=== PATIENT | female | born 1985 | race Two or more races ===

== ENCOUNTER → 2022-09-30 | Day surgery (SDC) | payer MEDICAID ==
[2022-09-27 10:32] LABS: Basophils # (auto) 0 10 ^3/uL (0-0.2); Basophils % (auto) 0.6 % (0.0-2.0); Eosinophils # (auto) 0.2 10 ^3/uL (0-0.8); Hematocrit 43.2 % (36.0-46.0); Hemoglobin 14.5 g/dL (12.2-16.2); Lymphocytes # (auto) 1.7 10 ^3/uL (0.4-5.4); Lymphocytes % (auto) 26.5 % (10.0-50.0); Mean Corpuscular Hemoglobin 28.9 pg (28.0-32.0); Mean Corpuscular Hgb Conc. 33.6 g/dL (32.0-36.0); Mean Corpuscular Volume 86.2 fL (80.0-100.0); Monocytes # (auto) 0.5 10 ^3/uL (0-1.3); Monocytes % (auto) 8.1 % (0.0-12.0); Neutrophils % (auto) 61.8 % (37.0-80.0); Nucleated Red Blood Cells % 0.1 %; Red Blood Cells 5.01 10^6/uL (4.0-5.20); Red Cell Distribution Width 13.2 % (11.8-14.3); White Blood Cell 6.4 10^3/uL (4.4-10.8)
[2022-09-27 10:51] LABS: INR 1.03 (0.9-1.15); Partial Thromboplastin Time 29.9 sec (24.6-33.4)
[2022-09-27 10:52] LABS: Albumin 4.1 g/dL (3.4-5.0); Calcium 9.3 mg/dL (8.5-10.1); Potassium 3.9 mmol/L (3.5-5.1)
[2022-09-27 10:57] LABS: BUN/Creatinine Ratio 21.9; Bilirubin, Total 1.3 mg/dL (0.2-1.0); Total Protein 9.1 g/dL (6.4-8.2)
[~2022-09-30] VITALS: Ht 160 cm; Wt 61.7 kg
[~2022-09-30] MED LIST: LIDOCAINE VISCOUS 2% 15ML UD ONE; METF-490 PO; PANT40TA2 PO; diphenhdrAMINE HCL 50 MG/1 ML VL ONE
[2022-09-30] MEDS: fentaNYL CITRATE 100 MCG/2 ML VL ONE ×2 (10:08→10:11)
[2022-09-30] MEDS: MIDAZOLAM HCL 2MG/2ML 2ml VIAL (1mg/ml) ONE ×2 (10:08→10:11)
[2022-09-30 10:45] VITALS: BP 121/88
== END | disposition home or self-care (01) ==
LOC: GI 09:08
PROVIDERS: ATTEND Internal Medicine Gastroenterology
DX: K74.60 Unspecified cirrhosis of liver (principal); R10.9 Unspecified abdominal pain; K59.00 Constipation, unspecified; K29.60 Other gastritis without bleeding; I85.10 Secondary esophageal varices without bleeding; K76.6 Portal hypertension; K31.89 Other diseases of stomach and duodenum; K21.9 Gastro-esophageal reflux disease without esophagitis; E11.9 Type 2 diabetes mellitus without complications; Z79.84 Long term (current) use of oral hypoglycemic drugs; Z98.890 Other specified postprocedural states; Z20.822 Contact with and (suspected) exposure to COVID-19
CPT/HCPCS: 36415; 43244; 80053; 81025; 82962; 85025; 85610; 85730; J1200; J2250; J3010; J7030; U0003; 43239

== ENCOUNTER 2023-01-27 09:43 | Day surgery (SDC) | payer MEDICAID ==
[2023-01-25 11:12] LABS: Basophils # (auto) 0 10 ^3/uL (0-0.2); Basophils % (auto) 0.8 % (0.0-2.0); Eosinophils # (auto) 0.2 10 ^3/uL (0-0.8); Hematocrit 40.5 % (36.0-46.0); Hemoglobin 13.7 g/dL (12.2-16.2); Lymphocytes # (auto) 1.2 10 ^3/uL (0.4-5.4); Lymphocytes % (auto) 24.1 % (10.0-50.0); Mean Corpuscular Hemoglobin 29.1 pg (28.0-32.0); Mean Corpuscular Hgb Conc. 33.9 g/dL (32.0-36.0); Mean Corpuscular Volume 85.7 fL (80.0-100.0); Monocytes # (auto) 0.4 10 ^3/uL (0-1.3); Monocytes % (auto) 8.8 % (0.0-12.0); Neutrophils # (auto) 2.9 10 ^3/uL (1.6-8.6); Neutrophils % (auto) 61.3 % (37.0-80.0); Nucleated Red Blood Cells % 0.3 %; Red Blood Cells 4.73 10^6/uL (4.0-5.20); Red Cell Distribution Width 13.4 % (11.8-14.3); White Blood Cell 4.8 10^3/uL (4.4-10.8)
[2023-01-25 11:26] LABS: INR 1.08 (0.9-1.15); Partial Thromboplastin Time 29.1 sec (24.6-33.4)
[2023-01-25 12:09] LABS: Albumin 3.8 g/dL (3.4-5.0); Calcium 8.9 mg/dL (8.5-10.1); Potassium 4.4 mmol/L (3.5-5.1)
[2023-01-25 12:13] LABS: Total Protein 8.5 g/dL (6.4-8.2)
[~2023-01-27] VITALS: Ht 160 cm; Wt 59.0 kg
[~2023-01-27 09:43] MED LIST changes: +DEXL30CA4 PO; -LIDOCAINE VISCOUS 2% 15ML UD ONE; -METF-490 PO; +PLEC3TAB2 PO; -diphenhdrAMINE HCL 50 MG/1 ML VL ONE
[2023-01-27] MEDS ORDERED: diphenhdrAMINE HCL 50 MG/1 ML VL ONE (11:28)
[2023-01-27] MEDS: MIDAZOLAM HCL 2MG/2ML 2ml VIAL (1mg/ml) ONE ×2 (11:29→11:32)
[2023-01-27] MEDS: fentaNYL CITRATE 100 MCG/2 ML VL ONE ×2 (11:29→11:32)
[2023-01-27 12:15] VITALS: BP 118/81
== END 2023-01-27 12:25 | disposition home or self-care (01) ==
LOC: GI 09:43
PROVIDERS: ATTEND Internal Medicine Gastroenterology
DX: K74.60 Unspecified cirrhosis of liver (principal); I85.10 Secondary esophageal varices without bleeding; K76.6 Portal hypertension; K31.89 Other diseases of stomach and duodenum
CPT/HCPCS: 36415; 43235; 80053; 84702; 85025; 85610; 85730; J1200; J2250; J3010; J7030

== ENCOUNTER → 2024-02-16 | Day surgery (SDC) | payer MEDICAID ==
[~2024-02-16] VITALS: Ht 160 cm; Wt 63.0 kg
[~2024-02-16] MED LIST changes: -DEXL30CA4 PO; -PANT40TA2 PO; -PLEC3TAB2 PO; +SEMA2INJ3 SC
== END | disposition home or self-care (01) ==
LOC: GI 08:37
PROVIDERS: ATTEND Internal Medicine Gastroenterology
DX: K74.60 Unspecified cirrhosis of liver (principal); Z53.8 Procedure and treatment not carried out for other reasons; E11.9 Type 2 diabetes mellitus without complications; Z79.899 Other long term (current) drug therapy; Z98.890 Other specified postprocedural states
CPT/HCPCS: 36415; 82962; 84702

== ENCOUNTER 2024-06-21 07:39 | Day surgery (SDC) | payer MEDICAID ==
[2024-06-20 09:23] LABS: Urine Bacteria None Seen /hpf (None Seen)
[2024-06-20 09:34] LABS: Basophils # (auto) 0 10 ^3/uL (0-0.2); Basophils % (auto) 0.9 % (0.0-2.0); Eosinophils # (auto) 0.1 10 ^3/uL (0-0.8); Eosinophils % (auto) 3.4 % (0.0-7.0); Hematocrit 41.6 % (36.0-46.0); Hemoglobin 14.4 g/dL (12.2-16.2); Lymphocytes # (auto) 0.9 10 ^3/uL (0.4-5.4); Lymphocytes % (auto) 22.9 % (10.0-50.0); Mean Corpuscular Hemoglobin 29.6 pg (28.0-32.0); Mean Corpuscular Hgb Conc. 34.6 g/dL (32.0-36.0); Mean Corpuscular Volume 85.6 fL (80.0-100.0); Monocytes # (auto) 0.3 10 ^3/uL (0-1.3); Monocytes % (auto) 8.5 % (0.0-12.0); Neutrophils # (auto) 2.6 10 ^3/uL (1.6-8.6); Neutrophils % (auto) 64.3 % (37.0-80.0); Nucleated Red Blood Cells % 0.2 %; Platelet Count (auto) 105 10^3/uL (140-450); Red Blood Cells 4.86 10^6/uL (4.0-5.20); Red Cell Distribution Width 13.9 % (11.8-14.3)
[2024-06-20 10:02] LABS: Urine Blood TRACE /uL (Negative); Urine Clarity Clear (Clear); Urine Color Light-Yellow (Yellow); Urine Protein, UAD Negative (Negative); Urine Specific Gravity 1.018 (1.001-1.035); Urine Urobilinogen Normal (Negative); Urine WBC 1 /hpf (0 - 5)
[2024-06-20 10:19] LABS: Alanine Aminotransferase 51 U/L (7-40); Albumin 4.5 g/dL (3.2-4.8); Alkaline Phosphatase 131 U/L (46-116); Anion Gap 7 (5-15); Aspartate Aminotransferase 39 U/L (13-40); BUN/Creatinine Ratio 17.7 (10.0-20.0); Bilirubin, Total 1.1 mg/dL (0.2-1.0); Blood Urea Nitrogen 11 mg/dL (9-23); Calcium 10.2 mg/dL (8.7-10.4); Carbon Dioxide 25 mmol/L (20-31); Chloride 107 mmol/L (98-107); Glucose 91 mg/dL (74-106); Potassium 4.1 mmol/L (3.5-5.1); Sodium 139 mmol/L (136-145)
[2024-06-20 10:20] LABS: Total Protein 8.4 g/dL (5.7-8.2)
[2024-06-20 10:30] LABS: INR 1.09 (0.9-1.15); Partial Thromboplastin Time 28.1 SEC (24.5-34.5); Prothrombin Time 11.5 sec (9.3-11.8)
[~2024-06-21] VITALS: Ht 160 cm; Wt 63.0 kg
[~2024-06-21 07:39] MED LIST changes: -SEMA2INJ3 SC; +TIRZ2.5I SC
[2024-06-21] MEDS ORDERED: fentaNYL CITRATE 100 MCG/2 ML VL ONE (09:30)
[2024-06-21] MEDS ORDERED: PROPOFOL 10 MG/ML 20 ML IV ONE (09:30)
--- NOTE | 2024-06-21 09:38 | DVHHP2 ---
GI H&P Pre-Op Assessment Date: 06/21/24 Chief complaint: cirrhosis HPI: per clinic note Past medical history: per clinic note Past surgical history: per clinic note Family history: per clinic note Physical exam: General: NAD, AAOX3 HEENT: PERRL, no scleral icterus, normal hearing, gums without lesions or bleeding, oropharynx clear without erythema or exudate. Neck: Supple without enlargement of the thyroid, or lymphadenopathy. Chest: Normal size and shape, no tenderness, lung dorsey clear to auscultation and percussion, nonlabored breathing. Heart: RRR, no murmur Abdomen: non-distended, no tenderness to palpation, +BS, no hepatosplenomegaly Extremities: no edema Neurological: CN II-XII intact, sensation intact in all extremities, 5+ strength in all extremities Skin: No rashes, No jaundice Assessment: - cirrhosis Plan: - EGD - Risks (bleeding, infection, perforation, reaction to sedation medications and cardiopulmonary arrest) and benefit of the procedure were explained to patient. Patient agrees to undergo the procedure. TIARA ARAIZA MD Jun 21, 2024 09:38
[2024-06-21 09:40] VITALS: TEMP 97.9
--- NOTE | 2024-06-21 09:41 | DVHOP2 ---
Operative Report DATE OF OPERATION: 06/21/24 PROCEDURE: Upper Endoscopy. PREOPERATIVE INDICATION: The patient is a 39 -year-old female with cirrhosis undergoing endoscopy for esophageal variceal screening. POSTOPERATIVE DIAGNOSES: 1. Gastritis. 2. One esophageal varix was banded. PROCEDURE PERFORMED BY: Neri Limon SCOPE: Olympus videoendoscope. ASA CLASS: 3 PREOPERATIVE MEDICATIONS: MAC with Dr Osborn PROCEDURE IN DETAIL: After obtaining an informed consent, the patient was placed on left lateral decubitus position. The patient was then sedated with the above medications. A bite block was placed between her teeth. The endoscope was then passed through the oropharynx, into the esophagus, and through the stomach and pylorus up to the second and third part of the duodenum. The duodenum was normal in appearance. There was gastritis. The GEJ was at 36 cm. One esophageal varix in the distal esophagus was banded. The endoscope was then withdrawn. The patient tolerated the procedure well without difficulty. COMPLICATIONS : None SPECIMENS: none DISPOSITION: D/C to home PLAN: 1. Pt will f/u in GI clinic. NERI LIMON MD Jun 21, 2024 09:41
--- NOTE | 2024-06-21 09:42 | DVHDS2 ---
Physician Discharge Progress N Final Diagnosis: gastritis, esophageal varix Operations or Procedures: Operations or Procedures EGD with variceal banding. Condition on Discharge: Good Disposition: Home Discharge Instructions: Diet: See Comment Diet comment: Liquid diet till tomorrow Activity: No Restrictions, As Tolerated Medications: resume previous home medications. Follow Up Care: Discharge Statement: "Patient was advised to return to the ER or call 911 if any headaches, dizziness, shortness of breath, chest pain, abdominal pain, bleeding, fevers, or worsening of medical condition. Patient was counseled about treatment plan, medications, possible side effects, patientverbalized understanding. All questions were answered to the best of my ability. This discharge took greater then 30 minutes in planning, reviewing documentation, counseling the patient, and discussing with other team members." TIARA ARAIZA MD Jun 21, 2024 09:42
[2024-06-21 10:10] VITALS: BP 109/69; PULSE 81; RESP 14; O2SAT 99
== END 2024-06-21 10:15 | disposition home or self-care (01) ==
LOC: GI 07:39
PROVIDERS: ATTEND Internal Medicine Gastroenterology
DX: K74.60 Unspecified cirrhosis of liver (principal); I85.10 Secondary esophageal varices without bleeding; K29.70 Gastritis, unspecified, without bleeding; E11.9 Type 2 diabetes mellitus without complications; Z98.890 Other specified postprocedural states
CPT/HCPCS: 36415; 43244; 80053; 81001; 82962; 84702; 85025; 85610; 85730; J2704; J3010; J7030